=== PATIENT | female | born 1960 | race Caucasian/White ===

== ENCOUNTER 2024-09-24 15:25 | Inpatient (IN) ==
[2024-09-24] MEDS ORDERED: IOPAMIDOL 100 ML BOTTLE IV ONE (15:26)
[2024-09-24] MEDS: 0.9 % SODIUM CHLORIDE 1,000 ML IV ONE (16:06)
[2024-09-24] MEDS: ONDANSETRON 4 MG/2 ML VIAL IV ONE (16:06)
[2024-09-24] MEDS: morphine 4 MG/ML VIAL IV ONE (16:07)
[2024-09-24 16:41] LABS: Basophils # (Auto) 0.04 K/mcL (0.00-0.30); Basophils % (Auto) 0.4 % (0.0-2.0); Eosinophils # (Auto) 0.16 K/mcL (0.00-0.70); Eosinophils % (Auto) 1.7 % (0.0-7.0); Hematocrit 42.1 % (34.1-44.9); Lymphocytes # (Auto) 1.65 K/mcL (1.50-4.80); Lymphocytes % (Auto) 17.9 % (15.5-49.0); Mean Cell Volume 95.2 fL (80.0-100.0); Mean Corpuscular HGB Conc 33.3 g/dL (31.0-36.0); Mean Platelet Volume 8.3 fL (8.8-12.5); Monocytes # (Auto) 0.51 K/mcL (0.10-0.90); Monocytes % (Auto) 5.5 % (1.0-12.0); Neutrophils % (Auto) 74.3 % (38.0-78.0); Platelet Count 258 K/mcL (140-440); RBC 4.42 M/mcL (3.59-5.38); Red Cell Distribution Width 11.7 % (11.5-14.5); WBC 9.2 K/mcL (4.5-11.0)
[2024-09-24 17:22] LABS: ALT/SGPT 38 U/L (<40); AST/SGOT 36 U/L (<32); Albumin 4.2 gm/dL (3.2-5.2); Albumin/Globulin Ratio 1.4 (1.0-2.3); Alkaline Phosphatase 112 U/L (39-117); Bilirubin,Total 0.3 mg/dL (0.1-1.0); Blood Urea Nitrogen 22 mg/dL (8-23); Calcium 9.7 mg/dL (8.6-10.4); Carbon Dioxide 27 mmol/L (22-30); Chloride 102 mmol/L (96-108); Glomerular Filtration Rate 69; Glucose 127 mg/dL (70-105); Potassium 4.3 mmol/L (3.3-5.1); Sodium 142 mmol/L (133-145)
[2024-09-24 19:46] LABS: Appearance,Urine Cloudy (Clear); Bacteria,Urine Many /hpf (0); Bilirubin,Urine Negative (Negative); Color,Urine Yellow; Glucose,Urine (UA) Negative (Negative); Ketones,Urine Negative (Negative); Leukocyte Esterase,Urine Moderate /uL (Negative); Nitrate,Urine Negative (Negative); PH,Urine 7.5 (5.0-9.0); Protein,Urine 30 mg/dL (Negative); Specific Gravity,Urine 1.015 (1.000-1.035); Urine Blood Moderate ery/mcL (Negative); Urine RBC 50 /hpf (0-3); Urine Squamous Epithelial Cell 2 /hpf (0-4); Urine WBC > 182 /hpf (0-4); Urobilinogen,Urine Normal
[2024-09-24] MEDS: cefTRIAXone 1 GM VIAL IV ONE ×2 (20:20→20:33)
[2024-09-24] MEDS: CEFEPIME 1 GM VIAL IV ONE (20:48)
[2024-09-24] MEDS ORDERED: ONDANSETRON 4 MG/2 ML VIAL IV PRN (21:50)
[2024-09-24] MEDS ORDERED: HYDROcodone/APAP 5/325MG TABLET PO PRN (21:50)
[2024-09-24] MEDS ORDERED: HYDROmorphone 0.5 MG/0.5 ML SYRINGE IV PRN (21:50)
[2024-09-24] MEDS: LACTATED RINGERS 1,000 ML IV SCH (22:54)
[2024-09-24] MEDS: ACETAMINOPHEN 500 MG TABLET PO PRN (22:54)
[2024-09-24] MEDS: SENNOSIDES 1 TABLET PO SCH (22:54)
[2024-09-24] MEDS: 0.9 % SODIUM CHLORIDE 10 ML SYRINGE IV SCH (22:54)
[2024-09-24] MEDS: DOCUSATE SODIUM 100 MG CAPSULE PO SCH (22:54)
[2024-09-24] MEDS: CIPROFLOXACIN 400 MG/200 ML BAG IV SCH (22:54)
[2024-09-24] MEDS: MELATONIN 3 MG TABLET PO SCH (23:08)
[2024-09-24] MEDS: MELATONIN 3 MG TABLET PO ONE (23:20)
[2024-09-25 05:59] LABS: Basophils # (Auto) 0.03 K/mcL (0.00-0.30); Basophils % (Auto) 0.4 % (0.0-2.0); Eosinophils # (Auto) 0.25 K/mcL (0.00-0.70); Eosinophils % (Auto) 3.2 % (0.0-7.0); Hematocrit 38.2 % (34.1-44.9); Hemoglobin 12.3 g/dL (11.2-15.7); Lymphocytes # (Auto) 1.67 K/mcL (1.50-4.80); Lymphocytes % (Auto) 21.7 % (15.5-49.0); Mean Cell Volume 98.5 fL (80.0-100.0); Mean Corpuscular HGB Conc 32.2 g/dL (31.0-36.0); Mean Platelet Volume 8.2 fL (8.8-12.5); Monocytes % (Auto) 9.1 % (1.0-12.0); Neutrophils % (Auto) 65.6 % (38.0-78.0); Platelet Count 221 K/mcL (140-440); RBC 3.88 M/mcL (3.59-5.38); Red Cell Distribution Width 11.9 % (11.5-14.5); WBC 7.7 K/mcL (4.5-11.0)
[2024-09-25 06:11] LABS: ALT/SGPT 31 U/L (<40); AST/SGOT 29 U/L (<32); Albumin 3.6 gm/dL (3.2-5.2); Albumin/Globulin Ratio 1.5 (1.0-2.3); Alkaline Phosphatase 89 U/L (39-117); Bilirubin,Direct < 0.2 mg/dL (0-0.3); Bilirubin,Total 0.3 mg/dL (0.1-1.0); Blood Urea Nitrogen 21 mg/dL (8-23); Carbon Dioxide 27 mmol/L (22-30); Chloride 106 mmol/L (96-108); Globulin 2.4 gm/dL (2.2-3.7); Glomerular Filtration Rate 69; Glucose 82 mg/dL (70-105); Lactate Dehydrogenase 164 U/L (135-225); Phosphorous 4.3 mg/dL (2.5-4.5); Potassium 4.3 mmol/L (3.3-5.1); Sodium 141 mmol/L (133-145); Triglycerides 124 mg/dL (<150); Uric Acid 2.6 mg/dL (2.5-8.0)
[2024-09-25] MEDS ORDERED: fentaNYL 100 MCG/2 ML VIAL ONE (08:24)
[2024-09-25] MEDS ORDERED: KETAMINE 50 MG/ML Syringe IV ONE (08:24)
[2024-09-25] MEDS ORDERED: PROPOFOL 200 MG/20 ML VIAL IV ONE (08:24)
[2024-09-25] MEDS ORDERED: GLYCOPYRROLATE 0.2 MG/ML VIAL IV ONE (08:25)
[2024-09-25] MEDS ORDERED: MAGNESIUM SULFATE 2 GM/50 ML BAG IV ONE (08:25)
[2024-09-25] MEDS ORDERED: FAMOTIDINE/PF 20 MG/2 ML VIAL IV ONE (08:25)
[2024-09-25] MEDS ORDERED: DEXAMETHASONE 10 MG/ML VIAL ONE (08:25)
[2024-09-25] MEDS ORDERED: ONDANSETRON 4 MG/2 ML VIAL ONE (08:25)
[2024-09-25] MEDS ORDERED: LIDOCAINE 2% PF 5 ML VIAL ONE (08:25)
[2024-09-25] MEDS ORDERED: LACTATED RINGERS 250 ML IV PRN (09:40)
[2024-09-25] MEDS ORDERED: NALOXONE HCL 0.4 MG/ML VIAL IV PRN (09:40)
[2024-09-25] MEDS ORDERED: HYDROmorphone 0.5 MG/0.5 ML SYRINGE IV PRN (09:40)
[2024-09-25] MEDS ORDERED: fentaNYL 100 MCG/2 ML VIAL IV PRN (09:40)
[2024-09-25] MEDS ORDERED: BENZOCAINE/MENTHOL 1 LOZENGE PO PRN (09:40)
[2024-09-25] MEDS ORDERED: IPRATROPIUM/ALBUTEROL 3 ML AMPUL.NEB NEB PRN (09:40)
[2024-09-25] MEDS ORDERED: LACTATED RINGERS 1,000 ML IV SCH (09:45)
[2024-09-25] MEDS ORDERED: PHENYLephrine 1 MG/10 ML SYRINGE (ANEST) ONE (09:52)
[2024-09-25] MEDS: IOVERSOL 50 ML VIAL IJ ONE (09:57)
[2024-09-25] MEDS: LIDOCAINE 2% URO-JET 10 ML JEL.PF.APP UR ONE (10:17)
[2024-09-25] MEDS: ACETAMINOPHEN 1,000 MG/100 ML BAG IV ONE (10:30)
[2024-09-25] MEDS: METHOCARBAMOL 1,000 MG/10 ML VIAL IV PRN (10:34)
[2024-09-25] MEDS: CIPROFLOXACIN 500 MG TABLET PO SCH (20:38)
[2024-09-26 08:10] VITALS: TEMP 98.4; O2SAT 98
== END 2024-09-26 10:15 | disposition home or self-care (01) | DRG 690 ==
LOC: ED 15:25 → MEDSUR 21:46
PROVIDERS: ADMIT Internal Medicine; ATTEND Internal Medicine